=== PATIENT | male | born 2000 | race Caucasian/White ===

== ENCOUNTER 2024-04-25 19:43 | Emergency (ER) | payer MEDICARE, OTHER, SELFPAY ==
[2024-04-25 19:48] VITALS: BP 123/84
--- NOTE | 2024-04-25 21:13 | ED.GENMED ---
History of Present Illness
General
Chief Complaint: Musculo-Skeletal Complaint
Source: patient
Exam Limitations: none
Time Seen by Provider: 04/25/24 20:09
Nursing documentation reviewed up to this point in time: agreed with
History of Present Illness
History of Present Illness:
23-year-old male presenting to the emergency department today with concerns of bilateral narvaez discomfort over the past 3 years made worse after running. Denies any numbness weakness or additional concerns no redness or warmth.
Review of Systems
Review of Systems
Allergies reviewed?: Yes
All Other Systems: ROS reviewed and negative except as documented in HPI and ROS
Phy Exam
Physical Exam
Physical Exam:
GENERAL: Alert , in no apparent distress
EYE: pupils equal and reactive
NECK: Supple, no significant adenopathy.
ENT: o/p clr, mmm.
CARDIAC: Regular rate and rhythm .
LUNGS: Clear breath sounds bilaterally, no acute respiratory distress, no wheezes/rales/rhonchi
ABDOMEN: Soft, without focal tenderness, no r/g, no cvat
NEUROLOGICAL: Alert and oriented, no focal neuro deficits
SKIN: Warm and dry, skin intact.
MUSCULOSKELETAL: Mild tenderness palpation to the narvaez bilaterally small bit of bruising to the proximal narvaez bilaterally. Good range of motion and strength of the knee and ankle., well perfused.
PSYCH: Normal and appropriate interaction.
Course
Orders/Labs/Results
Orders:
Orders
04/25/24 21:10
Tibia/Fibula, Left 2 View [CR Leg Tibia/fibula Left 2 Vw] Urgent
Comment:
Reason For Exam: narvaez pain
Tibia/Fibula, Right 2 View [CR Leg Tibia/fibula Right 2 Vw] Urgent
Comment:
Reason For Exam: shinpain
Vital Signs
Initial and Last Documented VS:
Initial Vital Signs
Temp Pulse Resp BP Pulse Ox
98.2 F 110 16 123/84 98
04/25/24 19:48 04/25/24 19:48 04/25/24 19:48 04/25/24 19:48 04/25/24 19:48
Last Documented Vital Signs
Temp Pulse Resp BP Pulse Ox
98.2 F 110 16 123/84 98
04/25/24 19:48 04/25/24 19:48 04/25/24 19:48 04/25/24 19:48 04/25/24 19:48
MDM/Problems Addressed
MDM/Problems Addressed:
23-year-old male presenting to the emergency department today for concerns of bilateral narvaez discomfort over the past few years made worse with running. Upon arrival patient in no distress mildly tachycardic initially but that improved without
specific treatment. Normal distal pulses normal range of motion and strength of the joints no redness or warmth. No signs of infection. X-ray without emergent findings. Patient appears stable for outpatient follow-up return precautions given.
*Critical Care Note
Total Time (30-74mins, 75-104mins- exclusive of procedures): Not Applicable
ED Attending Note
-
Portions of this chart may have been created with voice recognition software.� Occasional wrong word or��sound alike� substitutions may have occurred due to the inherent limitations of voice recognition software.
Discharge Plan
Departure
Patient Disposition: Home (Routine Discharge)
Date of Disposition: 04/25/24
Time of Disposition: 23:04
Patient with high blood pressure during this ER visit?: No
Condition: Good
Covid-19: Not Applicable
Discharge Problem:
Bilateral leg pain
Instructions: Muscle and Bone Pain (DC)
Referrals:
Anibal French MD [Family Provider] -
Tito Hui MD [Active] - Follow up in 5-7 days
Activity Restrictions/Additional Instructions:
You came to the emergency department today for concerns of leg discomfort. You had a normal x-ray. This could be shinsplints or soft tissue injury. Please use compression stocking rest and ice the area and otherwise follow-up with orthopedics.
Return to the emergency department for any worsening, new or concerning symptoms.
Interventions
Interventions:
*Risk Screen - Suicide Last Done: 04/25/24 19:48
*General Assessment Last Done: 04/25/24 19:48
*Neglect/Abuse Screening Last Done: 04/25/24 19:48
ED- Fall Risk Assessment Last Done: 04/25/24 21:19
ED-Musculoskeletal Assessment Last Done: 04/25/24 21:19
Discharge Date and Time
Print Language: HUNGARIAN
== END 2024-04-25 23:08 | disposition home or self-care (01) ==
LOC: EMR 19:43
PROVIDERS: EMERGENCY PHYSICIAN Emergency Medicine; FAMILY PHYSICIAN Internal Medicine
DX: M79.604 Pain in right leg (principal); M79.605 Pain in left leg
CPT/HCPCS: 99283; 73590

== ENCOUNTER 2024-06-14 23:09 | Emergency (ER) | payer MEDICARE, OTHER, SELFPAY ==
[2024-06-14 23:20] VITALS: BP 138/70
[2024-06-15 01:29] LABS: Urine Albumin Negative (Neg - Trace); Urine Bilirubin Negative (Negative); Urine Character Clear (Clear); Urine Color Yellow; Urine Glucose Negative (Negative); Urine Ketone Negative (Negative); Urine Leukocyte Negative (Negative); Urine Nitrite Negative (Negative); Urine Occult Blood Negative (Negative); Urine Urobilinogen Negative (Neg - 1+)
[2024-06-15 01:31] LABS: % Eosinophils 0.2 % (0-6); % Immature Granulocytes 0.2 % (0-0.5); % Lymphocytes 23.1 % (20.5-51.1); % Monocytes 8.7 % (1.7-9.3); % Neutrophils 67.8 % (42.2-75.2); Absolute Lymphocytes 1.4 10^3/uL (1.2-3.4); Absolute Monocytes 0.5 10^3/uL (0.1-0.6); Absolute Neutrophils 4.2 10^3/uL (1.4-6.5); Hematocrit 39.8 % (39.0-52.0); Hemoglobin 14.2 g/dL (13.0-18.0); Mean Corp Hgb Conc. 35.7 g/dL (33.0-37.0); Mean Corpuscular Hgb 31.1 pg (27.0-31.0); Mean Corpuscular Volume 87.3 fL (80.0-94.0); Mean Platelet Volume 8.9 fL (7.4-10.4); Nucleated Red Blood Cells % 0 % (-); Platelet Count 193 10^3/uL (130-400); Red Blood Cell Count 4.56 10^6/uL (4.70-6.10); Red Cell Dist. Width 12.3 % (11.5-14.5); White Blood Cell Count 6.2 10^3/uL (4.8-10.8)
[2024-06-15 01:42] LABS: ALT (SGPT) 24 U/L (0-50); AST (SGOT) 21 U/L (17-59); Alkaline Phosphatase 40 U/L (38-126); Blood Urea Nitrogen 17 mg/dl (9-20); Calcium 9.7 mg/dl (8.4-10.2); Carbon Dioxide 30 mmol/L (22-30); Chloride 101 mmol/L (98-107); Glucose 88 mg/dl (70-99); Potassium 3.8 mmol/L (3.5-5.1); Sodium 145 mmol/L (135-145); Total Bilirubin 0.7 mg/dl (0.2-1.3); Total Protein 7.3 g/dl (6.3-8.2); eGFR > 60.00
[2024-06-15 02:40] VITALS: BP 120/70
--- NOTE | 2024-06-15 03:05 | ED.GENMED ---
History of Present Illness
<CAROLA Catalan - Last Filed: 06/15/24 03:28>
General
Chief Complaint: Male Genito-Urinary Symptoms
Source: patient
Time Seen by Provider: 06/15/24 02:49
History of Present Illness
History of Present Illness:
Patient is a 24 y/o male with PMHx of seizures and ADHD presenting with incomplete emptying x6 hours. He states after urinating he still felt pressure in his suprapubic area and it feel like 'the urine is going up and down.' He states he has had the
feeling of incomplete emptying in the past but is usually goes away and he does not have suprapubic pressure. He state he was treated for chlamydia 2 months ago. He states he is sexually active with 1 female partner. He denies any fevers, nausea,
dysuria, hematuria, rectal pain.
Phy Exam
<CAROLA Catalan - Last Filed: 06/15/24 03:28>
Physical Exam
Physical Exam:
GENERAL: Alert , in no apparent distress
EYE: pupils equal and reactive
Throat: Airway intact, no exudates
NECK: Supple, no significant adenopathy.
CARDIAC: Regular rate and rhythm .
LUNGS: Clear breath sounds bilaterally, no acute respiratory distress, no wheezes/rales/rhonchi
ABDOMEN: Mild suprapubic tenderness with palpation. Abdomen is soft and nondistended. No guarding.
NEUROLOGICAL: Alert and oriented, no focal neuro deficits
SKIN: Warm and dry, skin intact.
MUSCULOSKELETAL: No edema, well perfused.
PSYCH: Normal and appropriate interaction.
Course
<CAROLA Catalan - Last Filed: 06/15/24 03:28>
Orders/Labs/Results
Orders:
Orders
06/15/24 01:11
Complete Blood Count/With Diff Urgent
Comprehensive Metabolic Panel Urgent
06/15/24 01:16
Urinalysis Urgent
Date Specimen was Collected: 06/15/24
Time Specimen was Collected: 01:05
06/15/24 03:14
Add On- LAB Urgent
Tests Added?: GC/chlamydia DNA probe (urine)
06/15/24 03:30
CT Abd/pel Without Iv Or Oral Urgent
Comment:
Reason For Exam: suprapubic pain, dysuria
Abnormal Lab Results
06/15/24
01:11
RBC 4.56 L 10^6/uL
(4.70-6.10)
MCH 31.1 H pg
(27.0-31.0)
06/15/24 01:11
06/15/24 01:11
Vital Signs
Initial and Last Documented VS:
Initial Vital Signs
Temp Pulse Resp BP Pulse Ox
98.4 F 94 24 138/70 100
06/14/24 23:20 06/14/24 23:20 06/14/24 23:20 06/14/24 23:20 06/14/24 23:20
Last Documented Vital Signs
Temp Pulse Resp BP Pulse Ox
98.4 F 78 16 121/84 100
06/14/24 23:20 06/15/24 04:52 06/15/24 04:52 06/15/24 04:52 06/15/24 04:52
<Courtney Nettles, DO - Last Filed: 06/15/24 05:19>
Orders/Labs/Results
Orders:
Orders
06/15/24 01:11
Complete Blood Count/With Diff Urgent
Comprehensive Metabolic Panel Urgent
06/15/24 01:16
Urinalysis Urgent
Date Specimen was Collected: 06/15/24
Time Specimen was Collected: 01:05
06/15/24 03:14
Add On- LAB Urgent
Tests Added?: GC/chlamydia DNA probe (urine)
06/15/24 03:30
CT Abd/pel Without Iv Or Oral Urgent
Comment:
Reason For Exam: suprapubic pain, dysuria
Abnormal Lab Results
06/15/24
01:11
RBC 4.56 L 10^6/uL
(4.70-6.10)
MCH 31.1 H pg
(27.0-31.0)
06/15/24 01:11
06/15/24 01:11
Vital Signs
Initial and Last Documented VS:
Initial Vital Signs
Temp Pulse Resp BP Pulse Ox
98.4 F 94 24 138/70 100
06/14/24 23:20 06/14/24 23:20 06/14/24 23:20 06/14/24 23:20 06/14/24 23:20
Last Documented Vital Signs
Temp Pulse Resp BP Pulse Ox
98.4 F 78 16 121/84 100
06/14/24 23:20 06/15/24 04:52 06/15/24 04:52 06/15/24 04:52 06/15/24 04:52
<CAROLA Catalan - Last Filed: 06/15/24 03:28>
MDM/Problems Addressed
Differential Diagnosis Includes:
Differential diagnosis includes but is not limited to UTI, urethritis.
<CAROLA Catalan - Last Filed: 06/15/24 03:28>
*Pulse Oximetry
Patient hypoxic: no
*EKG
Interpreted by ED Provider?: NA
*Tieing Machine Operator Interpretation
Rate: Tieing Machine Operator- N/A
*Critical Care Note
Total Time (30-74mins, 75-104mins- exclusive of procedures): Not Applicable
<Courtney Nettles DO - Last Filed: 06/15/24 05:19>
*Radiology
Radiology exam reviewed: radiology read reviewed
ED Attending Note
<CAROLA Catalan - Last Filed: 06/15/24 03:28>
-
Portions of this chart may have been created with voice recognition software.� Occasional wrong word or��sound alike� substitutions may have occurred due to the inherent limitations of voice recognition software.
<Courtney Nettles DO - Last Filed: 06/15/24 05:19>
ED Attending Note
Patient seen and examined by attending physician: Yes
I performed the substantive portion of visit, reviewed & personally made and approve the management plan that is documented in note by myself or ROB.: Yes
ED Attending Note:
This is a 24-year-old gentleman who complains of suprapubic discomfort/pressure and a sense of incomplete emptying. He denies dysuria, no back pain or flank pain, no fever no chills.
He is sexually active, with 1 female partner. They do not use condoms. 2 months ago his partner was evaluated for pelvic pain and was diagnosed with chlamydia. Patient himself had mild dysuria at that time, tested positive for chlamydia and was
treated without return of symptoms. Current symptoms are quite different from symptoms he experienced 2 months ago and he admits that his partner has been asymptomatic.
He has been moving his bowels normally. No fever no chills, no diarrhea nor constipation.
He is concerned for bladder muscle strain versus sphincter strain. No history of similar episodes in the past.
GENERAL: Alert , in no apparent distress. Somewhat preoccupied with his bladder function, multiple questions/concerns regarding bladder function, urination etc.
NECK: Supple, nontender, no meningismus, no significant adenopathy.
ENT: oral mucosa is moist. No rhinorrhea.
CARDIAC: Regular rate and rhythm. no murmur.
LUNGS: Clear breath sounds bilaterally, no acute respiratory distress, no wheezes/rales/rhonchi
ABDOMEN: Soft, nondistended, mild generalized tenderness to the lower abdomen without rebound or guarding. Bladder is not palpably distended. No inguinal tenderness nor adenopathy. no cvat. normoactive BS.
NEUROLOGICAL: Alert and oriented x3, no focal neuro deficits. Gait is luis and steady.
SKIN: Warm and dry, normal color, skin intact. No rash.
MUSCULOSKELETAL: No C/C/E. peripheral pulses are full and equal b/l. No palpable tenderness.
PSYCH: Mildly anxious.
Concern for UTI, recurrent STD, abdominal wall muscle strain, other consideration is ureteric stone, constipation, less likely appendicitis, colitis.
Urinalysis is unremarkable, completely clear. Patient elects to hold off on STD treatment and instead will await GC/chlamydia testing of urine.
Bladder scan reveals no residual urine in the bladder.
Will check CT abdomen pelvis.
06/15/[address] abdomen pelvis shows mild bladder wall thickening which may represent underlying cystitis however urinalysis is crystal-clear.
Moderate stool burden which may be cause for lower abdominal discomfort.
Discussed importance of remaining well-hydrated on a daily basis, increase high-fiber foods.
Will await GC/chlamydia results.
Follow-up with PCP for recheck.
Discharge Plan
Departure
Patient Disposition: Home (Routine Discharge)
Date of Disposition: 06/15/24
Time of Disposition: 05:13
Patient with high blood pressure during this ER visit?: No
Condition: Good
Discharge Problem:
Acute suprapubic pain, Constipation
Instructions: Constipation in adults
Referrals:
Anibal French MD [Family Provider] - Call in 1-3 days for appt
Activity Restrictions/Additional Instructions:
Your urinalysis is unremarkable. No evidence of infection. STD testing is pending and you will be notified if this is positive.
Interventions
Interventions:
*Risk Screen - Suicide Last Done: 06/14/24 23:20
*General Assessment Last Done: 06/15/24 02:40
*Neglect/Abuse Screening Last Done: 06/14/24 23:20
ED- Fall Risk Assessment Last Done: 06/15/24 02:40
*ED COVID-19 Vaccine History Last Done: 06/15/24 02:40
ED-Male Genitourinary Assessment Last Done: 06/15/24 02:40
Discharge Date and Time
Print Language: ARMENIAN
[2024-06-15 04:52] VITALS: BP 121/84
== END 2024-06-15 05:25 | disposition home or self-care (01) ==
LOC: EMR 23:09
PROVIDERS: Student in an Organized Health Care Education/Training Program; EMERGENCY PHYSICIAN Emergency Medicine; FAMILY PHYSICIAN Internal Medicine
DX: R10.2 Pelvic and perineal pain (principal); K59.00 Constipation, unspecified
CPT/HCPCS: 99284; 74176; 80053; 81003; 85025